=== PATIENT | female | born 1935 | race Caucasian/White ===

== ENCOUNTER 2017-02-24 14:18 | Observation (INO) | payer MEDICARE, OTHER ==
[~2017-02-24] VITALS: Ht 160 cm; Wt 89.3 kg
[~2017-02-24 14:18] MED LIST: CELEBREX 200MG200 MG PO; FIBERCON 6625 MG/TAB PO; FOSAMAX70 MG PO; KLONOPIN0.5 MG PO; MICARDIS40 MG PO; NASONEX0.05 MG/AC NS; NEXIUM40 MG PO; PAXIL20 MG PO; PROVENTIL0.09 MG/A1 IH; TRILIPIX 135MG PO; ZOCOR40 MG PO
[2017-02-24 15:49] VITALS: BP 138/76; PULSE 89; TEMP 98.3
[2017-02-24] MEDS ORDERED: NORVASC 5MG5 MG/TAB PO (16:03)
[2017-02-24] MEDS ORDERED: ASPIRIN 81M81 MG/TA2 PO (16:07)
[2017-02-24] MEDS ORDERED: RESTORIL 1515 MG/CAP PO (16:07)
[2017-02-24] MEDS ORDERED: NEURONTIN300 MG/CAP PO (16:08)
[2017-02-24 17:22] LABS: MEAN CELL VOLUME 94 fl (80.0-100.0); MEAN CORPUSCULAR HGB CONC 33 g/dl (33.0-37.0); MEAN PLATELET VOLUME 9.6 fl (7.4-10.4); PLATELET COUNT 188 K/mm3 (130-400); RED BLOOD COUNT 3.39 M/mm3 (4.10-5.30); REDCELL DISTRIBUTION WIDTH-CV 14.3 % (11.5-14.5); WHITE BLOOD COUNT 7.2 K/mm3 (4.8-10.8)
[2017-02-24 17:24] LABS: ADD PATHOLOGY DIFF REVIEW NO; HEMOGLOBIN 10.4 g/dl (12.5-16.0); MEAN CORPUSCULAR HEMOGLOBIN 31 pg (27.0-31.0)
[2017-02-24 17:30] LABS: INR 1.1 (0.8-3.0); PROTHROMBIN TIME 12.5 SECONDS (9.7-12.8)
[2017-02-24 17:40] LABS: ADJUSTED CALCIUM 9.2 mg/dL (8.4-10.2); ALBUMIN 4.1 gm/dL (3.5-5.0); BILIRUBIN,TOTAL 0.6 mg/dL (0.0-1.0); CALCIUM 9.3 mg/dL (8.4-10.2); CREATININE, serum 0.95 mg/dL (0.52-1.25); POTASSIUM 4.2 mmol/L (3.4-5.0); TOTAL PROTEIN 6.4 gm/dL (6.4-8.2)
[2017-02-24 18:51] LABS: BAND 9 % (0-10); NEUTROPHILS 76 % (42.0-75.2); PLATELET ESTIMATE NORMAL (NORMAL); TOTAL CELLS COUNTED 100
[2017-02-24 19:41] VITALS: BP 139/49; PULSE 74; TEMP 99.2
[2017-02-24 23:01] VITALS: BP 124/53; PULSE 71; TEMP 98.4
[2017-02-25] VITALS (10 sets, daily range): BP systolic 82–178; BP diastolic 56–88; PULSE 73–97; TEMP 97.8–98.8
[2017-02-25 03:34] LABS: PH 5 (5-8); SQUAMOUS EPITHELIAL 0-2 /hpf; URINE APPEARANCE Clear; URINE BACTERIA None Seen /hpf; URINE BILIRUBIN Negative (NEGATIVE); URINE BLOOD 1+ (NEGATIVE); URINE COLOR Yellow; URINE GLUCOSE Negative (NEGATIVE); URINE KETONE Negative (NEGATIVE); URINE RBC 0-2 /hpf; URINE UROBILINOGEN Negative (NEGATIVE)
[2017-02-25] MEDS ORDERED: NORCO 325 MG-51 TAB PO (14:32)
[2017-02-26 03:17] VITALS: BP 133/58; PULSE 86; TEMP 98.7
[2017-02-26 07:30] VITALS: BP 157/60; PULSE 90; TEMP 97.8
[2017-02-26 16:05] VITALS: BP 157/103; PULSE 89; TEMP 98.7
[2017-02-26 19:38] VITALS: BP 129/61; PULSE 68; TEMP 98
[2017-02-26 23:26] VITALS: BP 126/57; PULSE 76; TEMP 97.7
[2017-02-27 04:54] VITALS: BP 133/70; PULSE 81; TEMP 98.3
[2017-02-27 07:45] VITALS: BP 150/72; PULSE 89; TEMP 98.3
[2017-02-27] MEDS ORDERED: ROBAXIN 50500 MG/TAB PO (09:25)
== END 2017-02-27 13:32 | disposition home or self-care (01) ==
LOC: MEDICAL 14:18
PROVIDERS: Physician Assistant
DX: S32.010A Wedge compression fracture of first lumbar vertebra, initial encounter for closed fracture (principal); S32.030A Wedge compression fracture of third lumbar vertebra, initial encounter for closed fracture; W11.XXXA Fall on and from ladder, initial encounter; Y93.H2 Activity, gardening and landscaping; I10 Essential (primary) hypertension; E78.5 Hyperlipidemia, unspecified; K21.9 Gastro-esophageal reflux disease without esophagitis; G62.9 Polyneuropathy, unspecified; G47.00 Insomnia, unspecified; F41.8 Other specified anxiety disorders
CPT/HCPCS: 99222-AI; 99232-AI; 99233-AI; 99239; A9284; C1713; G0378; G0379; G8978-GP; G8979-GP; J2250; J2270; J2405; J3010